=== PATIENT | male | born 1950 | race Caucasian/White ===

== ENCOUNTER 2019-12-27 13:39 | Emergency (ER) | payer MEDICARE, MEDICAID ==
[~2019-12-27] VITALS: Ht 182.9 cm; Wt 100.0 kg
[2019-12-27] MEDS ORDERED: NITR0.3T12 SL (14:04)
[2019-12-27] MEDS ORDERED: METF-960 PO (14:04)
[2019-12-27] MEDS ORDERED: LIDOCAINE 1% 10 ML VIAL INJ ONE (14:45)
[2019-12-27] MEDS ORDERED: BACITRACIN 0.9 GM PACKET OINTMENT TP ONE (14:45)
[2019-12-27] MEDS ORDERED: ONDANSETRON HCL 4 MG TABLET PO ONE (15:15)
[2019-12-27 16:43] VITALS: BP 136/66
== END 2019-12-27 17:01 | disposition home or self-care (01) ==
LOC: EMS 14:11
DX: S01.312A Laceration without foreign body of left ear, initial encounter (principal); S51.812A Laceration without foreign body of left forearm, initial encounter; S10.93XA Contusion of unspecified part of neck, initial encounter; E11.65 Type 2 diabetes mellitus with hyperglycemia; J44.9 Chronic obstructive pulmonary disease, unspecified; F32.9 Major depressive disorder, single episode, unspecified; I10 Essential (primary) hypertension; Z79.84 Long term (current) use of oral hypoglycemic drugs; Z88.8 Allergy status to other drugs, medicaments and biological substances; Y04.0XXA Assault by unarmed brawl or fight, initial encounter; Y93.89 Activity, other specified; Y92.89 Other specified places as the place of occurrence of the external cause; Y99.8 Other external cause status
CPT/HCPCS: 12013; 70450; 72125; 99285; J3490; Q0162

== ENCOUNTER 2022-02-12 21:34 | Emergency (ER) | payer OTHER, MEDICAID ==
[~2022-02-12] VITALS: Ht 182.9 cm; Wt 94.1 kg
[~2022-02-12 21:34] MED LIST: METF-1211 PO; NITR0.3T12 SL
[2022-02-12 22:26] LABS: COVID AG,FIA SOURCE NASAL SWAB
[2022-02-12 22:28] LABS: EOSINOPHILS % (AUTO) 2.2 % (1.0-6.0); HEMATOCRIT 45.4 % (41-53); HEMOGLOBIN 15.4 g/dL (13.5-17.5); LYMPHOCYTES # (AUTO) 2.3 K/uL (1.0-4.8); LYMPHOCYTES % (AUTO) 22.9 % (22.0-44.0); MEAN CORPUSCULAR HEMOGLOBIN 30.1 pg (26.0-34.0); MEAN CORPUSCULAR HGB CONC 33.9 G/dL (31.0-37.0); MEAN CORPUSCULAR VOLUME 89 fL (80-100); MONOCYTES # (AUTO) 0.8 K/uL (0.1-1.0); MONOCYTES % (AUTO) 7.9 % (2.0-9.0); NEUTROPHILS # (AUTO) 6.6 K/uL (1.8-7.7); PLATELET COUNT (AUTO) 236 K/uL (150-450); RED CELL DISTRIBUTION WIDTH 13.1 % (11.5-14.5)
[2022-02-12 22:42] LABS: PROTHROMBIN TIME 10.3 SEC (9.4-11.6)
[2022-02-12 22:48] LABS: B-TYPE NATRIURETIC PEPTIDE 8 pg/mL (0-100)
[2022-02-12 23:01] LABS: LACTIC ACID 2.5 mmol/L (0.4-2.0)
[2022-02-12 23:05] LABS: ALANINE AMINOTRANSFERASE 23 U/L (12-78); ALBUMIN 3.2 g/dL (3.4-5.0); ALKALINE PHOSPHATASE 135 U/L (46-116); ANION GAP 10 mmol/L (8-16); ASPARTATE AMINOTRANSFERASE 12 U/L (15-37); BILIRUBIN,TOTAL 0.4 mg/dL (0.1-1.0); CALCIUM, TOTAL 9.2 mg/dL (8.8-10.5); CARBON DIOXIDE 24 mmol/L (22-29); CHLORIDE 92 mmol/L (98-107); CREATININE 1.33 mg/dL (0.60-1.30); GLOMERULAR FILTR. RATE CALC 53 mL/min (>60); POTASSIUM 3.2 mmol/L (3.5-5.1); SODIUM SERUM 126 mmol/L (136-145); TOTAL PROTEIN, SERUM 7.5 g/dL (6.4-8.2); UREA NITROGEN, BLOOD 9 mg/dL (7-18)
[2022-02-12 23:06] LABS: GLUCOSE,RANDOM 733 mg/dL (70-110)
[2022-02-12] MEDS ORDERED: SODIUM CHLORIDE 0.9% 1,000 ML IV ONE (23:15)
[2022-02-12 23:19] LABS: APPEARANCE,URINE CLEAR (CLEAR); BILIRUBIN,URINE NEGATIVE (NEGATIVE); GLUCOSE, URINE (UA) >=1000 mg/dL (NEGATIVE); KETONES,URINE TRACE mg/dL (NEGATIVE); LEUKOCYTE ESTERASE ,URINE NEGATIVE (NEGATIVE); NITRATE,URINE NEGATIVE (NEGATIVE); OCCULT BLOOD,URINE NEGATIVE (NEGATIVE); PROTEIN,URINE NEGATIVE (NEGATIVE); SPECIFIC GRAVITIY, URINE 1.035 (1.003-1.030); UROBILINOGEN,URINE <=1.0 mg/dL (<=1.0)
[2022-02-12] MEDS ORDERED: POTASSIUM CHLORIDE 20 MEQ ER TABLET PO ONE (23:30)
[2022-02-12 23:33] LABS: BACTERIA,URINE None Seen /HPF (None Seen); RBC,URINE None Seen /HPF (0-2); WBC,URINE None Seen /HPF (0-5)
[2022-02-13 00:56] LABS: GLUCOSE,POINT OF CARE 567 MG/DL (70-110)
[2022-02-13] MEDS ORDERED: SODIUM CHLORIDE 0.9% 1,000 ML IV ONE (01:00)
[2022-02-13 01:04] LABS: CALCIUM, TOTAL 8.8 mg/dL (8.8-10.5); CREATININE 1.21 mg/dL (0.60-1.30); POTASSIUM 3.3 mmol/L (3.5-5.1)
[2022-02-13] MEDS ORDERED: POTASSIUM CHLORIDE 20 MEQ ER TABLET PO ONE (01:45)
[2022-02-13 01:53] VITALS: BP 132/73
[2022-02-13 05:00] LABS: GLUCOSE,POINT OF CARE 430 MG/DL (70-110)
== END 2022-02-13 05:31 | disposition home or self-care (01) ==
LOC: EMS 21:40
DX: E11.65 Type 2 diabetes mellitus with hyperglycemia (principal); I10 Essential (primary) hypertension; F32.9 Major depressive disorder, single episode, unspecified; J44.9 Chronic obstructive pulmonary disease, unspecified; Z79.899 Other long term (current) drug therapy; Z88.8 Allergy status to other drugs, medicaments and biological substances; Z20.822 Contact with and (suspected) exposure to COVID-19
CPT/HCPCS: 71045; 80048; 80053; 81001; 82962; 83605; 83880; 83930; 84484; 85025; 85610; 85730; 93005; 96360; 96361; 99285; 36415-L1; 36415-TC

== ENCOUNTER 2022-03-07 21:43 | Emergency (ER) | payer OTHER, MEDICAID ==
[~2022-03-07] VITALS: Ht 182.9 cm; Wt 94.1 kg
[2022-03-07] MEDS ORDERED: ONDANSETRON HCL 4 MG/2 ML VIAL IVP ONE (22:15)
[2022-03-07] MEDS ORDERED: SODIUM CHLORIDE 0.9% 1,000 ML IV ONE (22:15)
[2022-03-07 22:30] LABS: BASOPHILS % (AUTO) 0.5 % (0.0-2.0); HEMATOCRIT 40.5 % (41-53); HEMOGLOBIN 13.6 g/dL (13.5-17.5); LYMPHOCYTES # (AUTO) 2.1 K/uL (1.0-4.8); MEAN CORPUSCULAR HEMOGLOBIN 29.6 pg (26.0-34.0); MEAN CORPUSCULAR HGB CONC 33.5 G/dL (31.0-37.0); MEAN CORPUSCULAR VOLUME 88 fL (80-100); MONOCYTES # (AUTO) 0.6 K/uL (0.1-1.0); MONOCYTES % (AUTO) 8.5 % (2.0-9.0); NEUTROPHILS # (AUTO) 4.6 K/uL (1.8-7.7); PLATELET COUNT (AUTO) 226 K/uL (150-450); RED BLOOD CELL COUNT(AUTO) 4.59 MIL/uL (4.50-5.90); RED CELL DISTRIBUTION WIDTH 13.7 % (11.5-14.5)
[2022-03-07 22:37] LABS: ANION GAP 14 mmol/L (8-16); CALCIUM, TOTAL 9.2 mg/dL (8.8-10.5); CARBON DIOXIDE 28 mmol/L (22-29); CHLORIDE 102 mmol/L (98-107); CREATININE 0.73 mg/dL (0.60-1.30); GLOMERULAR FILTR. RATE CALC > 60 mL/min (>60); GLUCOSE,RANDOM 73 mg/dL (70-110); POTASSIUM 4.1 mmol/L (3.5-5.1); SODIUM SERUM 144 mmol/L (136-145); UREA NITROGEN, BLOOD 5 mg/dL (7-18)
[2022-03-07 22:42] LABS: ALANINE AMINOTRANSFERASE 22 U/L (12-78); ALBUMIN 2.9 g/dL (3.4-5.0); ALKALINE PHOSPHATASE 78 U/L (46-116); ASPARTATE AMINOTRANSFERASE 17 U/L (15-37); BILIRUBIN,TOTAL 0.5 mg/dL (0.1-1.0); LIPASE 47 U/L (73-393); TOTAL PROTEIN, SERUM 6.8 g/dL (6.4-8.2)
[2022-03-08 00:08] VITALS: BP 134/82
== END 2022-03-08 00:22 | disposition home or self-care (01) ==
LOC: EMS 21:46
DX: E11.649 Type 2 diabetes mellitus with hypoglycemia without coma (principal); J44.9 Chronic obstructive pulmonary disease, unspecified; F32.A Depression, unspecified; I10 Essential (primary) hypertension; R10.30 Lower abdominal pain, unspecified; R19.7 Diarrhea, unspecified; Z98.890 Other specified postprocedural states; Z88.8 Allergy status to other drugs, medicaments and biological substances
CPT/HCPCS: 99283; 96374; 96361; 80053; 82962; 83690; 85025; 36415; J2405; J7030

== ENCOUNTER 2023-05-14 15:38 | Emergency (ER) | payer MEDICARE, MEDICAID ==
[~2023-05-14] VITALS: Ht 182.9 cm; Wt 77.3 kg
[2023-05-14 16:11] VITALS: TEMP 99
[2023-05-14] MEDS ORDERED: ATOR40TA71 PO (16:37)
[2023-05-14] MEDS ORDERED: INSU3INS3 SQ (16:37)
[2023-05-14] MEDS ORDERED: DOCU100C33 PO (16:37)
[2023-05-14] MEDS ORDERED: OMEG10005 PO (16:37)
[2023-05-14] MEDS ORDERED: RISP0.2515 PO (16:37)
[2023-05-14] MEDS ORDERED: FLUO40CA PO (16:37)
[2023-05-14] MEDS ORDERED: METF-446 PO (16:37)
[2023-05-14] MEDS ORDERED: SEMA14TA2 PO (16:37)
[2023-05-14] MEDS ORDERED: ONDANSETRON HCL 4 MG/2 ML VIAL IVP ONE (16:45)
[2023-05-14] MEDS ORDERED: SODIUM CHLORIDE 0.9% 1,000 ML IV ONE (16:45)
[2023-05-14 17:01] LABS: BASOPHILS % (AUTO) 0.7 % (0.0-2.0); EOSINOPHILS % (AUTO) 0.8 % (1.0-6.0); HEMATOCRIT 38.5 % (41-53); HEMOGLOBIN 12.9 g/dL (13.5-17.5); LYMPHOCYTES # (AUTO) 1.7 K/uL (1.0-4.8); MEAN CORPUSCULAR HEMOGLOBIN 30.5 pg (26.0-34.0); MEAN CORPUSCULAR HGB CONC 33.4 G/dL (31.0-37.0); MEAN CORPUSCULAR VOLUME 91 fL (80-100); MONOCYTES # (AUTO) 0.5 K/uL (0.1-1.0); MONOCYTES % (AUTO) 5.9 % (2.0-9.0); NEUTROPHILS # (AUTO) 6.2 K/uL (1.8-7.7); NEUTROPHILS % (AUTO) 72.6 % (40.0-70.0); PLATELET COUNT (AUTO) 230 K/uL (150-450); RED BLOOD CELL COUNT(AUTO) 4.21 MIL/uL (4.50-5.90); RED CELL DISTRIBUTION WIDTH 13.6 % (11.5-14.5); WHITE BLOOD COUNT (AUTO) 8.5 K/uL (4.5-11.0)
[2023-05-14 17:11] LABS: ANION GAP 4 mmol/L (8-16); CALCIUM, TOTAL 8.8 mg/dL (8.8-10.5); CARBON DIOXIDE 31 mmol/L (22-29); CHLORIDE 106 mmol/L (98-107); CREATININE 0.63 mg/dL (0.60-1.30); GLOMERULAR FILTR. RATE CALC > 60 mL/min (>60); GLUCOSE,RANDOM 115 mg/dL (70-110); POTASSIUM 3.6 mmol/L (3.5-5.1); SODIUM SERUM 141 mmol/L (136-145); UREA NITROGEN, BLOOD 10 mg/dL (7-18)
[2023-05-14 17:15] LABS: ALANINE AMINOTRANSFERASE 20 U/L (12-78); ALKALINE PHOSPHATASE 62 U/L (46-116); ASPARTATE AMINOTRANSFERASE 12 U/L (15-37); BILIRUBIN,TOTAL 0.5 mg/dL (0.1-1.0); LIPASE 37 U/L (16-77); TOTAL PROTEIN, SERUM 6.3 g/dL (6.4-8.2); TROPONIN I-HIGH SENSITIVITY 7 ng/L (<76)
[2023-05-14 17:18] LABS: ALCOHOL, BLOOD (SERUM) < 3 mg/dL (0-10)
[2023-05-14 17:23] LABS: LACTIC ACID 0.7 mmol/L (0.4-2.0)
[2023-05-14] MEDS ORDERED: ONDA-104 PO (18:54)
[2023-05-14 19:00] VITALS: BP 133/58; PULSE 78; RESP 14
[2023-05-14] MEDS ORDERED: ONDANSETRON HCL 4 MG TABLET PO ONE (19:00)
== END 2023-05-14 19:24 | disposition home or self-care (01) ==
LOC: EMS 15:40
DX: R11.2 Nausea with vomiting, unspecified (principal); E11.9 Type 2 diabetes mellitus without complications; J44.9 Chronic obstructive pulmonary disease, unspecified; F32.A Depression, unspecified; I10 Essential (primary) hypertension; Z98.890 Other specified postprocedural states; Z88.8 Allergy status to other drugs, medicaments and biological substances
CPT/HCPCS: 99285; 96374; 71045; 96361; 80053; 83605; 83690; 84484; 85025; 36415; 93005; G0480; J2405; Q0162; J7030

== ENCOUNTER 2023-09-06 08:05 | Inpatient (IN) | payer OTHER, MEDICAID ==
[~2023-09-06] VITALS: Ht 182.9 cm; Wt 88.6 kg
[~2023-09-06 08:05] MED LIST changes: +ATOR40TA71 PO; +DOCU100C33 PO; +FLUO40CA PO; +INSU3INS3 SQ; -METF-1211 PO; +METF-446 PO; -NITR0.3T12 SL; +OMEG10005 PO; +ONDA-104 PO; +RISP0.2515 PO; +SEMA14TA2 PO
[2023-09-06] MEDS ORDERED: NITROGLYCERIN 2% (1 GM=INCH) OINTMENT PACKET TP ONE (09:00)
[2023-09-06 09:10] LABS: B-TYPE NATRIURETIC PEPTIDE 38 pg/mL (0-100)
[2023-09-06 09:19] LABS: BASOPHILS % (AUTO) 1.3 % (0.0-2.0); EOSINOPHILS % (AUTO) 1.7 % (1.0-6.0); HEMOGLOBIN 14.1 g/dL (13.5-17.5); LYMPHOCYTES # (AUTO) 1.3 K/uL (1.0-4.8); LYMPHOCYTES % (AUTO) 13.4 % (22.0-44.0); MEAN CORPUSCULAR HEMOGLOBIN 30.5 pg (26.0-34.0); MEAN CORPUSCULAR HGB CONC 32.9 G/dL (31.0-37.0); MEAN CORPUSCULAR VOLUME 93 fL (80-100); MONOCYTES # (AUTO) 0.6 K/uL (0.1-1.0); MONOCYTES % (AUTO) 6.3 % (2.0-9.0); NEUTROPHILS # (AUTO) 7.3 K/uL (1.8-7.7); NEUTROPHILS % (AUTO) 77.3 % (40.0-70.0); PLATELET COUNT (AUTO) 216 K/uL (150-450); RED BLOOD CELL COUNT(AUTO) 4.63 MIL/uL (4.50-5.90); RED CELL DISTRIBUTION WIDTH 13.9 % (11.5-14.5); WHITE BLOOD COUNT (AUTO) 9.5 K/uL (4.5-11.0)
[2023-09-06 09:33] LABS: TROPONIN I-HIGH SENSITIVITY 22 ng/L (<76)
[2023-09-06 09:35] LABS: ANION GAP 7 mmol/L (8-16); CALCIUM, TOTAL 9.7 mg/dL (8.8-10.5); CARBON DIOXIDE 30 mmol/L (22-29); CHLORIDE 102 mmol/L (98-107); CREATININE 0.79 mg/dL (0.60-1.30); GLOMERULAR FILTR. RATE CALC > 60 mL/min (>60); GLUCOSE,RANDOM 198 mg/dL (70-110); POTASSIUM 4.3 mmol/L (3.5-5.1); SODIUM SERUM 139 mmol/L (136-145); UREA NITROGEN, BLOOD 15 mg/dL (7-18)
[2023-09-06 09:40] LABS: ALANINE AMINOTRANSFERASE 26 U/L (12-78); ALBUMIN 3.5 g/dL (3.4-5.0); ALKALINE PHOSPHATASE 72 U/L (46-116); ASPARTATE AMINOTRANSFERASE 14 U/L (15-37); BILIRUBIN,TOTAL 0.6 mg/dL (0.1-1.0)
[2023-09-06 13:30] LABS: TROPONIN I-HIGH SENSITIVITY 68 ng/L (<76)
[2023-09-06 14:19] LABS: COVID AG,FIA SOURCE NASAL SWAB
[2023-09-06 14:40] LABS: SARS-COV2 (COVID) ANTIGEN,FIA Negative (Negative)
[2023-09-06] MEDS ORDERED: BISACODYL 10 MG RECTAL RECTAL SUPPOSITORY PR PRN (15:45)
[2023-09-06] MEDS ORDERED: MORPHINE SULFATE 2 MG/ML SYRINGE IVP PRN (15:45)
[2023-09-06] MEDS ORDERED: ACETAMINOPHEN 325 MG TABLET PO PRN (15:45)
[2023-09-06] MEDS ORDERED: ZOLPIDEM TARTRATE 5 MG TABLET PO PRN (15:45)
[2023-09-06] MEDS ORDERED: HYDROCODONE/ACETAMINOPHEN 5-325 MG TABLET PO PRN (15:45)
[2023-09-06] MEDS ORDERED: ONDANSETRON HCL 4 MG/2 ML VIAL IVP PRN (15:45)
[2023-09-06] MEDS ORDERED: MAGNESIUM HYDROXIDE SUSPENSION 30 ML UDCUP PO PRN (15:45)
[2023-09-06] MEDS ORDERED: DEXTROSE 50%-WATER 25 GM/50 ML SYRINGE IVP PRN (16:00)
[2023-09-06] MEDS: HEPARIN SODIUM,PORCINE 5,000 UNITS/ML VIAL SQ SCH (16:38)
[2023-09-06] MEDS: MetFORMIN HCL 500 MG TABLET PO SCH (19:12)
[2023-09-06] MEDS ORDERED: NITROGLYCERIN 0.4 MG SUBLINGUAL TABLET #25 SL PRN (19:15)
[2023-09-06 20:10] VITALS: BP 110/59; PULSE 58; RESP 16; TEMP 97.9
[2023-09-06 20:21] LABS: GLUCOMETER DEV NAME(LOC) 5S.1B; GLUCOSE,POINT OF CARE 212 MG/DL (70-110)
[2023-09-06] MEDS: METOPROLOL TARTRATE 25 MG TABLET PO SCH (21:00)
[2023-09-06] MEDS: RisperiDONE 0.5 MG TABLET PO SCH (21:27)
[2023-09-06] MEDS: DOCUSATE SODIUM 100 MG CAPSULE PO SCH (21:27)
[2023-09-06] MEDS: INSULIN LISPRO 100 UNITS/ML SQ PRN (21:28)
[2023-09-07] VITALS (7 sets, daily range): BP systolic 98–119; BP diastolic 43–62; PULSE 64–76; RESP 16–18; TEMP 97.8–98.3
[2023-09-07] MEDS: HEPARIN SODIUM,PORCINE 5,000 UNITS/ML VIAL SQ SCH ×3 (00:26→16:51)
[2023-09-07 07:41] LABS: BASOPHILS % (AUTO) 1.6 % (0.0-2.0); EOSINOPHILS % (AUTO) 3.4 % (1.0-6.0); HEMOGLOBIN 13.9 g/dL (13.5-17.5); LYMPHOCYTES # (AUTO) 2.1 K/uL (1.0-4.8); LYMPHOCYTES % (AUTO) 31.9 % (22.0-44.0); MEAN CORPUSCULAR HEMOGLOBIN 31.1 pg (26.0-34.0); MEAN CORPUSCULAR HGB CONC 33.8 G/dL (31.0-37.0); MEAN CORPUSCULAR VOLUME 92 fL (80-100); MONOCYTES # (AUTO) 0.6 K/uL (0.1-1.0); NEUTROPHILS # (AUTO) 3.5 K/uL (1.8-7.7); NEUTROPHILS % (AUTO) 54.1 % (40.0-70.0); PLATELET COUNT (AUTO) 206 K/uL (150-450); RED BLOOD CELL COUNT(AUTO) 4.45 MIL/uL (4.50-5.90); RED CELL DISTRIBUTION WIDTH 13.5 % (11.5-14.5); WHITE BLOOD COUNT (AUTO) 6.4 K/uL (4.5-11.0)
[2023-09-07] MEDS: MetFORMIN HCL 500 MG TABLET PO SCH ×3 (08:00→18:13)
[2023-09-07 08:04] LABS: ANION GAP 8 mmol/L (8-16); CALCIUM, TOTAL 9.2 mg/dL (8.8-10.5); CARBON DIOXIDE 28 mmol/L (22-29); CHLORIDE 100 mmol/L (98-107); CHOL/HDL RATIO 2.2 (4.2-7.3); CHOLESTEROL 117 mg/dL (131-200); CREATININE 0.88 mg/dL (0.60-1.30); GLOMERULAR FILTR. RATE CALC > 60 mL/min (>60); GLUCOSE,RANDOM 176 mg/dL (70-110); HDL CHOLESTEROL 53 mg/dL (40-60); LDL CHOL (CALC.) 52 mg/dL (0-130); POTASSIUM 4.1 mmol/L (3.5-5.1); SODIUM SERUM 136 mmol/L (136-145); TRIGLYCERIDES 59 mg/dL (15-150); UREA NITROGEN, BLOOD 18 mg/dL (7-18)
[2023-09-07 08:05] LABS: TROPONIN I-HIGH SENSITIVITY 70 ng/L (<76)
[2023-09-07 08:10] LABS: HEMOGLOBIN A1C 7.7 % (3.8-5.6)
[2023-09-07] MEDS: ATORVASTATIN CALCIUM 40 MG TABLET PO SCH (08:31)
[2023-09-07] MEDS: ASPIRIN 81 MG DR TABLET PO SCH (08:31)
[2023-09-07] MEDS: DOCUSATE SODIUM 100 MG CAPSULE PO SCH ×2 (08:31→20:35)
[2023-09-07] MEDS: PANTOPRAZOLE SODIUM 40 MG DR TABLET PO SCH (08:32)
[2023-09-07] MEDS: FLUoxetine HCL 20 MG CAPSULE PO SCH (08:32)
[2023-09-07] MEDS: METOPROLOL TARTRATE 25 MG TABLET PO SCH ×2 (09:00→20:40)
[2023-09-07 09:01] LABS: GLUCOMETER DEV NAME(LOC) 5S.1B; GLUCOSE,POINT OF CARE 200 MG/DL (70-110)
[2023-09-07] MEDS ORDERED: SESTAMIBI TC99M/UD ISOTOPE 1 EA INJ INJ ONE ×2 (11:05→13:35)
[2023-09-07] MEDS ORDERED: REGADENOSON 0.4 MG/5 ML PF SYRINGE IVP ONE (11:15)
[2023-09-07 12:46] LABS: GLUCOMETER DEV NAME(LOC) 5N.2C; GLUCOSE,POINT OF CARE 252 MG/DL (70-110)
[2023-09-07] MEDS: INSULIN LISPRO 100 UNITS/ML SQ PRN ×3 (12:51→20:47)
[2023-09-07 17:21] LABS: GLUCOMETER DEV NAME(LOC) 5N.2C; GLUCOSE,POINT OF CARE 224 MG/DL (70-110)
[2023-09-07] MEDS: RisperiDONE 0.5 MG TABLET PO SCH (20:40)
[2023-09-08] MEDS: HEPARIN SODIUM,PORCINE 5,000 UNITS/ML VIAL SQ SCH ×2 (00:43→08:08)
[2023-09-08 05:34] VITALS: BP 108/54; PULSE 80; RESP 18; TEMP 97.8
[2023-09-08] MEDS: INSULIN LISPRO 100 UNITS/ML SQ PRN ×2 (06:08→11:41)
[2023-09-08 07:04] LABS: BASOPHILS % (AUTO) 1.3 % (0.0-2.0); HEMATOCRIT 43.2 % (41-53); HEMOGLOBIN 14.4 g/dL (13.5-17.5); LYMPHOCYTES # (AUTO) 1.9 K/uL (1.0-4.8); LYMPHOCYTES % (AUTO) 23.2 % (22.0-44.0); MEAN CORPUSCULAR HEMOGLOBIN 30.6 pg (26.0-34.0); MEAN CORPUSCULAR HGB CONC 33.2 G/dL (31.0-37.0); MEAN CORPUSCULAR VOLUME 92 fL (80-100); MONOCYTES # (AUTO) 0.7 K/uL (0.1-1.0); MONOCYTES % (AUTO) 8.6 % (2.0-9.0); NEUTROPHILS # (AUTO) 5.2 K/uL (1.8-7.7); NEUTROPHILS % (AUTO) 63.9 % (40.0-70.0); PLATELET COUNT (AUTO) 205 K/uL (150-450); RED BLOOD CELL COUNT(AUTO) 4.69 MIL/uL (4.50-5.90); RED CELL DISTRIBUTION WIDTH 13.7 % (11.5-14.5); WHITE BLOOD COUNT (AUTO) 8.1 K/uL (4.5-11.0)
[2023-09-08 07:13] LABS: ANION GAP 5 mmol/L (8-16); CALCIUM, TOTAL 9.6 mg/dL (8.8-10.5); CARBON DIOXIDE 31 mmol/L (22-29); CHLORIDE 98 mmol/L (98-107); GLOMERULAR FILTR. RATE CALC > 60 mL/min (>60); GLUCOSE,RANDOM 174 mg/dL (70-110); POTASSIUM 4.5 mmol/L (3.5-5.1); SODIUM SERUM 134 mmol/L (136-145); UREA NITROGEN, BLOOD 16 mg/dL (7-18)
[2023-09-08] MEDS: MetFORMIN HCL 500 MG TABLET PO SCH (08:08)
[2023-09-08] MEDS: DOCUSATE SODIUM 100 MG CAPSULE PO SCH (08:09)
[2023-09-08] MEDS: ASPIRIN 81 MG DR TABLET PO SCH (08:09)
[2023-09-08] MEDS: FLUoxetine HCL 20 MG CAPSULE PO SCH (08:10)
[2023-09-08] MEDS: ATORVASTATIN CALCIUM 40 MG TABLET PO SCH (08:10)
[2023-09-08] MEDS: PANTOPRAZOLE SODIUM 40 MG DR TABLET PO SCH (08:10)
[2023-09-08] MEDS: METOPROLOL TARTRATE 25 MG TABLET PO SCH (08:13)
[2023-09-08 08:18] VITALS: BP 111/65; PULSE 65; RESP 16; TEMP 97.6
[2023-09-08] MEDS ORDERED: REGADENOSON 0.4 MG/5 ML PF SYRINGE IVP ONE (11:18)
[2023-09-08 11:27] LABS: GLUCOMETER DEV NAME(LOC) 5N.2C; GLUCOSE,POINT OF CARE 164 MG/DL (70-110)
[2023-09-08 11:27] LABS: GLUCOMETER DEV NAME(LOC) 5N.2C; GLUCOSE,POINT OF CARE 147 MG/DL (70-110)
[2023-09-08 11:31] LABS: GLUCOMETER DEV NAME(LOC) 5N.2C; GLUCOSE,POINT OF CARE 178 MG/DL (70-110)
[2023-09-08] MEDS ORDERED: METO25 PO (11:36)
[2023-09-08] MEDS ORDERED: ATOR40TA71 PO (11:36)
[2023-09-08] MEDS ORDERED: ASPI-1444 PO (11:36)
[2023-09-08 12:04] VITALS: BP 122/83; PULSE 64; RESP 18; TEMP 98.1
[2023-09-10 04:06] LABS: QUANTIFERON+, Nil Value 0.05 IU/mL; QUANTIFERON+,Mitogen Value >10.00 IU/mL; QUANTIFERON+,TB1 Antigen Value 3.76 IU/mL; QUANTIFERON+,TB2 Antigen Value 2.87 IU/mL; QUANTIFERON, TB GOLD PLUS Positive (Negative)
== END 2023-09-08 16:15 | disposition home health service (06) | DRG 311 ==
LOC: EMS 08:05 → AHU 09:00 → 5N 18:53
PROVIDERS: ADMIT Internal Medicine; ATTEND Internal Medicine
DX: I20.0 Unstable angina (principal); E11.65 Type 2 diabetes mellitus with hyperglycemia; E78.5 Hyperlipidemia, unspecified; F32.A Depression, unspecified; J44.9 Chronic obstructive pulmonary disease, unspecified; Z20.822 Contact with and (suspected) exposure to COVID-19; I11.9 Hypertensive heart disease without heart failure; Z79.899 Other long term (current) drug therapy; Z82.49 Family history of ischemic heart disease and other diseases of the circulatory system; Z87.891 Personal history of nicotine dependence; Z88.8 Allergy status to other drugs, medicaments and biological substances
CPT/HCPCS: 71045; 76700; 78452; 80048; 80053; 80061; 82962; 83036; 83880; 84484; 85025; 86480; 93005; 93306; 99285; A9500; J1644; J2785; 36415-L1; 36415-TC

== ENCOUNTER 2024-07-03 08:30 | Emergency (ER) | payer MEDICARE, OTHER ==
[~2024-07-03] VITALS: Ht 182.9 cm; Wt 131.4 kg
[~2024-07-03 08:30] MED LIST changes: +ASPI-1444 PO; -DOCU100C33 PO; -METF-446 PO; -OMEG10005 PO; -ONDA-104 PO
[2024-07-03 08:57] VITALS: TEMP 98.3
[2024-07-03 09:11] LABS: GLUCOMETER DEV NAME(LOC) ERT.6; GLUCOSE,POINT OF CARE 473 MG/DL (70-110)
[2024-07-03 09:27] LABS: BASOPHILS % (AUTO) 0.9 % (0.0-2.0); EOSINOPHILS % (AUTO) 2.4 % (1.0-6.0); HEMATOCRIT 43.6 % (41-53); HEMOGLOBIN 14.4 g/dL (13.5-17.5); LYMPHOCYTES # (AUTO) 1.4 K/uL (1.0-4.8); LYMPHOCYTES % (AUTO) 25.7 % (22.0-44.0); MEAN CORPUSCULAR HEMOGLOBIN 30.8 pg (26.0-34.0); MEAN CORPUSCULAR HGB CONC 33.1 G/dL (31.0-37.0); MEAN CORPUSCULAR VOLUME 93 fL (80-100); MONOCYTES # (AUTO) 0.5 K/uL (0.1-1.0); MONOCYTES % (AUTO) 8.8 % (2.0-9.0); NEUTROPHILS # (AUTO) 3.3 K/uL (1.8-7.7); NEUTROPHILS % (AUTO) 62.2 % (40.0-70.0); PLATELET COUNT (AUTO) 184 K/uL (150-450); RED BLOOD CELL COUNT(AUTO) 4.67 MIL/uL (4.50-5.90); RED CELL DISTRIBUTION WIDTH 13.1 % (11.5-14.5); WHITE BLOOD COUNT (AUTO) 5.3 K/uL (4.5-11.0)
[2024-07-03 09:44] LABS: ANION GAP 6 mmol/L (8-16); CALCIUM, TOTAL 9.4 mg/dL (8.8-10.5); CARBON DIOXIDE 30 mmol/L (22-29); CHLORIDE 99 mmol/L (98-107); CREATININE 1.03 mg/dL (0.60-1.30); GLOMERULAR FILTR. RATE CALC > 60 mL/min (>60); POTASSIUM 4.2 mmol/L (3.5-5.1); SODIUM SERUM 135 mmol/L (136-145); UREA NITROGEN, BLOOD 10 mg/dL (7-18)
[2024-07-03 09:48] LABS: GLUCOSE,RANDOM 508 mg/dL (70-110)
[2024-07-03 10:00] LABS: ACETONE,BLOOD NEGATIVE (NEGATIVE)
[2024-07-03] MEDS: INSULIN LISPRO 100 UNITS/ML SQ ONE (10:23)
[2024-07-03 11:30] LABS: GLUCOMETER DEV NAME(LOC) ERT.6; GLUCOSE,POINT OF CARE 421 MG/DL (70-110)
[2024-07-03 12:46] VITALS: BP 118/56; PULSE 82; RESP 16; O2SAT 97
[2024-07-03 12:55] LABS: GLUCOMETER DEV NAME(LOC) ERT.6; GLUCOSE,POINT OF CARE 384 MG/DL (70-110)
== END 2024-07-03 12:46 | disposition home or self-care (01) ==
LOC: EMS 08:30
DX: S00.411A Abrasion of right ear, initial encounter (principal); E11.65 Type 2 diabetes mellitus with hyperglycemia; J44.9 Chronic obstructive pulmonary disease, unspecified; I10 Essential (primary) hypertension; F32.A Depression, unspecified; Z79.82 Long term (current) use of aspirin; Z90.89 Acquired absence of other organs; Z79.899 Other long term (current) drug therapy; W44.8XXA Other foreign body entering into or through a natural orifice, initial encounter; Y93.89 Activity, other specified; Y92.89 Other specified places as the place of occurrence of the external cause; Y99.8 Other external cause status
CPT/HCPCS: 80048; 82009; 82948; 82962; 85025; 96372; 99283; J1815

== ENCOUNTER 2024-11-09 18:53 | Emergency (ER) | payer MEDICARE, OTHER ==
[~2024-11-09] VITALS: Ht 180.3 cm; Wt 95.0 kg
[~2024-11-09 18:53] MED LIST changes: -ATOR40TA71 PO; -FLUO40CA PO; +FOLI-130 PO; +INSLAN SQ; -INSU3INS3 SQ; -RISP0.2515 PO; +RISP0.5T80 PO; -SEMA14TA2 PO; +SERT-439 PO; +SIMV-43 PO
[2024-11-09 19:00] VITALS: BP 110/56; PULSE 72; RESP 16; TEMP 98.1; O2SAT 100
== END 2024-11-09 19:53 | disposition home or self-care (01) ==
LOC: EMS 18:55
DX: F25.1 Schizoaffective disorder, depressive type (principal); J44.9 Chronic obstructive pulmonary disease, unspecified; E11.9 Type 2 diabetes mellitus without complications; I10 Essential (primary) hypertension; Z88.8 Allergy status to other drugs, medicaments and biological substances; Z79.4 Long term (current) use of insulin; Z79.82 Long term (current) use of aspirin; Z90.89 Acquired absence of other organs
CPT/HCPCS: 99285; Z7502

== ENCOUNTER 2024-12-15 17:23 | Emergency (ER) | payer MEDICARE, OTHER ==
[~2024-12-15] VITALS: Ht 181.6 cm; Wt 84.1 kg
[2024-12-15 19:58] LABS: BASOPHILS % (AUTO) 0.3 % (0.0-2.0); EOSINOPHILS % (AUTO) 1.4 % (1.0-6.0); HEMATOCRIT 46.4 % (41-53); HEMOGLOBIN 15.3 g/dL (13.5-17.5); LYMPHOCYTES # (AUTO) 2.5 K/uL (1.0-4.8); LYMPHOCYTES % (AUTO) 21.1 % (22.0-44.0); MEAN CORPUSCULAR VOLUME 91 fL (80-100); NEUTROPHILS # (AUTO) 8.3 K/uL (1.8-7.7); NEUTROPHILS % (AUTO) 69.2 % (40.0-70.0); PLATELET COUNT (AUTO) 208 K/uL (150-450); RED BLOOD CELL COUNT(AUTO) 5.11 MIL/uL (4.50-5.90); RED CELL DISTRIBUTION WIDTH 13.1 % (11.5-14.5)
[2024-12-15 20:07] LABS: ANION GAP 7 mmol/L (8-16); CALCIUM, TOTAL 9.4 mg/dL (8.8-10.5); CARBON DIOXIDE 29 mmol/L (22-29); CHLORIDE 99 mmol/L (98-107); CREATININE 1.01 mg/dL (0.60-1.30); GLOMERULAR FILTR. RATE CALC > 60 mL/min (>60); GLUCOSE,RANDOM 233 mg/dL (70-110); POTASSIUM 3.7 mmol/L (3.5-5.1); SODIUM SERUM 135 mmol/L (136-145); UREA NITROGEN, BLOOD 23 mg/dL (7-18)
[2024-12-15 20:16] LABS: GLUCOMETER DEV NAME(LOC) ERT.7; GLUCOSE,POINT OF CARE 226 MG/DL (70-110)
[2024-12-16 07:04] VITALS: BP 119/71; PULSE 79; RESP 16; TEMP 97.8; O2SAT 100
== END 2024-12-16 09:10 | disposition home or self-care (01) ==
LOC: EMS 17:23
DX: R53.1 Weakness (principal); J44.9 Chronic obstructive pulmonary disease, unspecified; E11.65 Type 2 diabetes mellitus with hyperglycemia; I10 Essential (primary) hypertension; F32.A Depression, unspecified; Z88.8 Allergy status to other drugs, medicaments and biological substances; Z79.4 Long term (current) use of insulin; Z79.82 Long term (current) use of aspirin; Z90.89 Acquired absence of other organs
CPT/HCPCS: 80048; 82962; 85025; 99283

== ENCOUNTER 2025-05-14 11:38 | Inpatient (IN) | payer MEDICARE, MEDICAID ==
[~2025-05-14] VITALS: Ht 182.9 cm; Wt 84.0 kg
[2025-05-14 12:58] LABS: PLATELET COUNT (AUTO) 314 K/uL (150-450); RED BLOOD CELL COUNT(AUTO) 4.73 MIL/uL (4.50-5.90); RED CELL DISTRIBUTION WIDTH 14.0 % (11.5-14.5); WHITE BLOOD COUNT (AUTO) 16.2 K/uL (4.5-11.0)
[2025-05-14] MEDS ORDERED: GUAIF600 PO (13:07)
[2025-05-14] MEDS ORDERED: CEFE2VIA IV (13:07)
[2025-05-14] MEDS ORDERED: IPRA3AMP24 IH (13:07)
[2025-05-14] MEDS ORDERED: INSU100V SQ (13:07)
[2025-05-14] MEDS ORDERED: DEXA1 PO (13:07)
[2025-05-14] MEDS ORDERED: MIDO5TAB29 PO (13:07)
[2025-05-14] MEDS ORDERED: INSLAN SQ (13:07)
[2025-05-14] MEDS ORDERED: BENZ-227 PO (13:07)
[2025-05-14] MEDS ORDERED: BUDE0.5A NEB (13:07)
[2025-05-14] MEDS ORDERED: PANT-31 PO (13:07)
[2025-05-14] MEDS ORDERED: ALBU2.5V39 NEB (13:07)
[2025-05-14 13:08] LABS: CALCIUM, TOTAL 9.9 mg/dL (8.8-10.5); CREATININE 0.84 mg/dL (0.60-1.30); GLOMERULAR FILTR. RATE CALC > 60 mL/min (>60); GLUCOSE,RANDOM 120 mg/dL (70-110); SODIUM SERUM 137 mmol/L (136-145); UREA NITROGEN, BLOOD 10 mg/dL (7-18)
[2025-05-14 13:11] LABS: GLUCOMETER DEV NAME(LOC) ER.7; GLUCOSE,POINT OF CARE 108 MG/DL (70-110)
[2025-05-14 13:44] LABS: COVID AG,FIA SOURCE NASAL SWAB
[2025-05-14 14:02] LABS: SARS-COV2 (COVID) ANTIGEN,FIA Negative (Negative)
[2025-05-14] MEDS ORDERED: ZOLPIDEM TARTRATE 10 MG TABLET PO PRN (16:15)
[2025-05-14 16:21] VITALS: O2SAT 98
[2025-05-14 18:28] VITALS: BP 96/72; PULSE 95; RESP 16; TEMP 97.7; O2SAT 100
[2025-05-14] MEDS ORDERED: PNEUMOCOCCAL VACCINE POLYVALENT 0.5 ML SYRINGE [PPSV23] IM. ONE (19:15)
[2025-05-14] MEDS ORDERED: INFLUENZA VIRUS VACCINE TVS (6MO+) 2025-26/PF 45 MCG/0.5 ML SYRINGE IM. ONE (19:15)
[2025-05-14 21:04] VITALS: BP 100/67; PULSE 88; RESP 18; TEMP 97.8; O2SAT 96
[2025-05-14] MEDS: SIMVASTATIN 20 MG TABLET PO SCH (21:05)
[2025-05-14] MEDS: INSULIN GLARGINE,HUM.REC.ANLOG 100 UNITS/ML SQ SCH (21:14)
[2025-05-14] MEDS: INSULIN LISPRO 100 UNITS/ML SQ PRN (21:16)
[2025-05-14 21:31] LABS: GLUCOMETER DEV NAME(LOC) 3E.C; GLUCOSE,POINT OF CARE 300 MG/DL (70-110)
[2025-05-15] MEDS ORDERED: GuaiFENesin/D-METHORPHAN [SUGAR-FREE] 200-20MG/10 ML SYRUP UDCUP PO PRN (06:15)
[2025-05-15] MEDS ORDERED: IBUPROFEN 400 MG TABLET PO PRN (06:15)
[2025-05-15] MEDS ORDERED: DOCUSATE SODIUM 100 MG CAPSULE PO PRN (06:15)
[2025-05-15] MEDS ORDERED: NICOTINE 14 MG/24 HOUR PATCH TD PRN (06:15)
[2025-05-15] MEDS ORDERED: ACETAMINOPHEN 325 MG TABLET PO PRN (06:15)
[2025-05-15] MEDS ORDERED: MISC MED-CONVERTED FROM AMBULATORY (Ipratropium/Albuterol Sulfate (Duoneb 2.5-0.5 Mg/3 Ml IH PRN (06:15)
[2025-05-15] MEDS ORDERED: MAGNESIUM HYDROXIDE SUSPENSION 30 ML UDCUP PO PRN (06:15)
[2025-05-15] MEDS ORDERED: MAG HYDROX/ALUMINUM HYD/SIMETH ES 30 ML SUSPENSION UDCUP PO PRN (06:15)
[2025-05-15] MEDS ORDERED: PETROLATUM,WHITE 28 GM JELLY TP PRN (06:15)
[2025-05-15] MEDS ORDERED: ONDANSETRON 4 MG TABLET PO PRN (06:15)
[2025-05-15] MEDS ORDERED: LOPERAMIDE HCL 2 MG CAPSULE PO PRN (06:15)
[2025-05-15] MEDS ORDERED: ALBUTEROL SULFATE 2.5 MG/0.5 ML NEB SOLUTION NEB PRN (06:30)
[2025-05-15] MEDS ORDERED: IPRATROPIUM BROMIDE 0.5 MG/2.5 ML NEB SOLUTION NEB PRN (06:30)
[2025-05-15 06:40] LABS: GLUCOMETER DEV NAME(LOC) 3E.C; GLUCOSE,POINT OF CARE 178 MG/DL (70-110)
[2025-05-15 08:15] VITALS: BP 107/58; PULSE 64; RESP 18; TEMP 97.7; O2SAT 98
[2025-05-15 09:47] VITALS: BP 107/58; PULSE 64; RESP 18; TEMP 97.7
[2025-05-15] MEDS: NYSTATIN 15 GM POWDER BOTTLE TP SCH (09:47)
[2025-05-15] MEDS: ALBUTEROL SULFATE HFA 90 MCG/PUFF 8 GM INHALER IH PRN (09:47)
[2025-05-15] MEDS: ASPIRIN 81 MG DR TABLET PO SCH (09:49)
[2025-05-15] MEDS: MIDODRINE HCL 5 MG TABLET PO SCH (09:49)
[2025-05-15] MEDS: SERTRALINE HCL 50 MG TABLET PO SCH (10:20)
[2025-05-15] MEDS: FLUTICASONE/VILANTEROL 200-25 MCG/INH INHALER [14] IH SCH (10:34)
[2025-05-15 11:21] LABS: GLUCOMETER DEV NAME(LOC) 3E.C; GLUCOSE,POINT OF CARE 268 MG/DL (70-110)
[2025-05-15] MEDS ORDERED: RISP0.2515 PO (16:45)
[2025-05-15 17:51] LABS: GLUCOMETER DEV NAME(LOC) 3E.C; GLUCOSE,POINT OF CARE 274 MG/DL (70-110)
[2025-05-15 21:05] VITALS: BP 118/64; PULSE 68; RESP 20; TEMP 97.9; O2SAT 98
[2025-05-15 21:26] LABS: GLUCOMETER DEV NAME(LOC) 3E.C; GLUCOSE,POINT OF CARE 211 MG/DL (70-110)
[2025-05-16 10:06] VITALS: RESP 18
[2025-05-16 12:26] LABS: GLUCOMETER DEV NAME(LOC) 3E.C; GLUCOSE,POINT OF CARE 215 MG/DL (70-110)
[2025-05-16 17:25] LABS: GLUCOMETER DEV NAME(LOC) 3E.C; GLUCOSE,POINT OF CARE 298 MG/DL (70-110)
[2025-05-16 20:50] LABS: GLUCOMETER DEV NAME(LOC) 3E.C; GLUCOSE,POINT OF CARE 270 MG/DL (70-110)
[2025-05-16 21:22] LABS: PLATELET COUNT (AUTO) 273 K/uL (150-450); RED BLOOD CELL COUNT(AUTO) 4.33 MIL/uL (4.50-5.90); RED CELL DISTRIBUTION WIDTH 13.9 % (11.5-14.5); WHITE BLOOD COUNT (AUTO) 6.4 K/uL (4.5-11.0)
[2025-05-16 21:43] LABS: CHOL/HDL RATIO 2.8 (4.2-7.3); LDL CHOL (CALC.) 62.0 mg/dL (0-130)
[2025-05-16 22:35] VITALS: RESP 19
[2025-05-16 23:07] LABS: APPEARANCE,URINE CLEAR (CLEAR); GLUCOSE, URINE (UA) >=1000 mg/dL (NEGATIVE); LEUKOCYTE ESTERASE ,URINE NEGATIVE (NEGATIVE); NITRATE,URINE NEGATIVE (NEGATIVE); OCCULT BLOOD,URINE NEGATIVE (NEGATIVE); PH,URINE DRUG SCREEN 6.0 (5.0-8.0); SPECIFIC GRAVITIY, URINE 1.031 (1.003-1.030)
[2025-05-16 23:17] LABS: ALCOHOL, URINE DRUG SCREEN NEGATIVE (NEGATIVE); AMPHET/METH SCREEN,URINE NEGATIVE (NEGATIVE); BARBITURATE SCREEN, URINE NEGATIVE (NEGATIVE); CANNABINOID SCREEN,URINE NEGATIVE (NEGATIVE); COCAINE SCREEN,URINE NEGATIVE (NEGATIVE); METHADONE SCREEN, URINE NEGATIVE (NEGATIVE)
[2025-05-16 23:43] LABS: AMORPHOUS SEDIMENT,UR Few /LPF (None Seen); SQUAMOUS EPITHELIAL CELL,UR Rare /LPF (None Seen)
[2025-05-17 06:56] LABS: GLUCOMETER DEV NAME(LOC) 3E.C; GLUCOSE,POINT OF CARE 252 MG/DL (70-110)
[2025-05-17 12:06] LABS: GLUCOMETER DEV NAME(LOC) 3E.C; GLUCOSE,POINT OF CARE 171 MG/DL (70-110)
[2025-05-17 12:22] VITALS: BP 97/54; PULSE 82; RESP 18; TEMP 97.6; O2SAT 96
[2025-05-17] MEDS ORDERED: RISP0.5T80 PO (17:40)
[2025-05-17] MEDS ORDERED: FLUT1BLS IH (17:44)
[2025-05-17] MEDS ORDERED: NYST15PO3 TP (17:47)
[2025-05-17 17:51] LABS: GLUCOMETER DEV NAME(LOC) 3E.C; GLUCOSE,POINT OF CARE 210 MG/DL (70-110)
[2025-05-17 20:30] VITALS: BP 105/60; PULSE 82; RESP 18; TEMP 98.2; O2SAT 98
[2025-05-17 20:31] LABS: GLUCOMETER DEV NAME(LOC) 3EX.2; GLUCOSE,POINT OF CARE 265 MG/DL (70-110)
== END 2025-05-17 22:01 | DRG 885 ==
LOC: EMS 11:48 → EDH 16:14 → 3EC 18:55
PROVIDERS: ADMIT Psychiatry & Neurology Child & Adolescent Psychiatry; ATTEND Psychiatry & Neurology Child & Adolescent Psychiatry
PROC: GZHZZZZ Group Psychotherapy (ICD-10-PCS; principal; 2025-05-15)
DX: F25.1 Schizoaffective disorder, depressive type (principal); E11.9 Type 2 diabetes mellitus without complications; I10 Essential (primary) hypertension; I95.1 Orthostatic hypotension; D72.829 Elevated white blood cell count, unspecified; J44.9 Chronic obstructive pulmonary disease, unspecified; Z20.822 Contact with and (suspected) exposure to COVID-19; K21.9 Gastro-esophageal reflux disease without esophagitis; E78.00 Pure hypercholesterolemia, unspecified; Z79.899 Other long term (current) drug therapy; I25.2 Old myocardial infarction
CPT/HCPCS: 71045; 80048; 80061; 80307; 81001; 82962; 83036; 84443; 85025; 87081; 97110; 97116; 97162; 97166; 97530; 99285; G0480; J1815; J3535; 36415-L1; 36415-TC